=== PATIENT | male | born 1995 | race Caucasian/White ===

== ENCOUNTER 2017-05-18 11:26 | Emergency (ER) | payer BC ==
[~2017-05-18] VITALS: Ht 182.9 cm; Wt 90.8 kg
[2017-05-18 11:30] VITALS: TEMP 36.8; Ht 182.9 cm; Wt 90.8 kg
--- NOTE | 2017-05-18 12:09 | DIAGNOSTIC IMAGING REPORT ---
R KNEE 3 VIEWS HISTORY: 22 years-old Male pain acute right knee pain without reported trauma COMPARISON: None available TECHNIQUE: 3 views of the right knee FINDINGS: 3 mm corticated bone fragment is noted adjacent to the lateral aspect of the lateral femoral condyle suggesting fragment osteophyte or remote avulsion fracture. There is moderate medial soft tissue swelling about the knee, greatest medially with small to moderate joint effusion. No acute fracture or subluxation. IMPRESSION: 1. Moderate soft tissue swelling with small moderate joint effusion. No acute fracture or subluxation. 2. 3 mm corticated bone fragment adjacent to the lateral femoral condyle suggests remote avulsion fracture or fragmented osteophyte. The above report was generated using voice recognition software. It may contain grammatical, syntax or spelling errors. Electronically signed by: Ryder Purdy M.D. 05/18/2017 12:08 PM Dictated Date/Time: 05/18/2017 12:06 PM
[2017-05-18 12:52] VITALS: BP 127/68; PULSE 62; O2SAT 99
--- NOTE | 2017-05-18 18:45 | EMERGENCY ROOM VISIT NOTE ---
ED Visit Note First contact with patient: 12:02 CHIEF COMPLAINT: Right Knee injury HISTORY OF PRESENT ILLNESS: This 22-year-old white male patient injured his right knee yesterday while walking. He slipped on some ice at that time. He thinks that the patella subluxed medially. He did not have to reduce it. He states it has done this twice in the past. He previously had subluxation and dislocation of his left patella and underwent surgical intervention. He has not had surgery on the right knee. He is concerned because his edema has not improved. He has been icing and elevating throughout the evening. He notes continued pain medially with attempted weightbearing. Ambulatory with a limp. No numbness or tingling. He states he cannot fully straighten the leg secondary to pain. A female friend accompanies him today. REVIEW OF SYSTEM: HEENT: No dizziness, visual problems, hearing loss, or tinnitus. There is no difficulty swallowing and no oral lesions are present. PULMONARY: No cough, shortness of breath, sputum production or hemoptysis. CARDIOVASCULAR: No chest pain, palpitations, shortness of breath or peripheral edema. GASTROINTESTINAL: No diarrhea, constipation, nausea, vomiting, or abdominal pain. GENITOURINARY: No dysuria, frequency, urgency or nocturia. NEUROLOGIC: No weakness, muscle tenderness, epilepsy or history of neurological problems. MUSCULOSKELETAL: Positive history of joint tenderness/swelling. No history of arthritis or arthralgias. SKIN: No rashes or lesions. PSYCHIATRIC: No history of depression or mental illness. ENDOCRINE: No history of diabetes, thyroid disorders, or abnormal hair growth. PMH: Unremarkable Previous surgeries: Left knee surgery Family history: Noncontributory Current medications: None Allergies: NKDA SOCIAL HISTORY: Patient lives at with a roommate. No tobacco use. Single. [employer] student. PHYSICAL EXAM: Vital Signs: Reviewed Nurse's notes. Afebrile. MENTAL STATUS: Alert, oriented, and cooperative. Skin: Warm and dry with good turgor. No rashes or lesions. Very mild ecchymosis present medially just above the joint line. Moderate intra- articular effusion. The patient is not diaphoretic. No abrasions. Musculoskeletal: The right knee is tender and visibly swollen. He has discomfort with palpation over the medial retinaculum and medial condyle. No pain with palpation over the lateral condyle or lateral retinaculum. No pain over the LCL. He does have pain with palpation over the MCL as well as with stressing of the MCL. No appreciable laxity for the collateral ligaments. Normal Brandin. No significant discomfort with palpation over the medial or lateral joint lines. No pain with circumduction testing. He lacks approximately 5 of terminal extension. Flexion to adjust over 90 limited by swelling. No defect in the patellar tendon or quadriceps tendon. He is able to do a leg raise. The patient walks with an antalgic gait. He does appear to have a hypermobile patella in extension. Neurologic: Gross sensation is intact across the right leg by soft touch. EMERGENCY DEPARTMENT COURSE: Radiographic imaging obtained today was reviewed by me and read by radiology. He has a visible effusion. No evidence of acute fracture. Patella is reduced. DIAGNOSIS: Right knee patellar subluxation DISCHARGE INSTRUCTIONS: Patient was educated regarding today's findings. Conservative care measures were discussed. Radiographic imaging was obtained. Patient was offered crutches for ambulation. Weight-bear as tolerated. He should use a knee brace or sleeve for protection and support. He was offered a knee immobilizer and declined. Follow-up with his orthopedist or a local orthopedist for reexamination and physical therapy referral. Ibuprofen, 600 mg every 6 hours if needed for pain. Supplement with Tylenol every 6 hours for breakthrough pain. Ice and elevation to the knee frequently for the next 72 hours. Stay off the leg as much as possible. He was reassured that I do not suspect ligamentous disruption or tendon disruption. Possibility of meniscal injury was discussed. Current/Historical Medications No Active Prescriptions or Reported Meds Allergies Coded Allergies: No Known Allergies (Unverified , 05/18/17) Vital Signs Date Time Temp Pulse Resp B/P (MAP) Pulse Ox O2 Delivery O2 Flow Rate FiO2 05/18/17 12:52 62 20 127/68 99 05/18/17 11:30 36.8 93 18 98 Room Air Departure Information Impression Primary Impression: Acquired subluxation of right patella Dispostion Home / Self-Care Condition GOOD Prescriptions No Active Prescriptions or Reported Meds Referrals No Doctor, Assigned (PCP) Junior Banda M.D. Forms HOME CARE DOCUMENTATION FORM, MOTRIN USE, TYLENOL USE, IMPORTANT VISIT INFORMATION Patient Instructions [facility] [employer] Additional Instructions Continue ice and elevation frequently to reduce pain and swelling Using knee brace or sleeve for support and compression Use crutches until you can walk without a limp Call [facility] orthopedics on Friday for follow-up this week and PT referral Gentle motion daily
== END 2017-05-18 12:55 | disposition home or self-care (01) ==
LOC: C.EDB 11:30 → C.EDD 12:55
DX: S83.001A Unspecified subluxation of right patella, initial encounter (principal); W00.0XXA Fall on same level due to ice and snow, initial encounter; Y93.01 Activity, walking, marching and hiking